=== PATIENT | male | born 1990 | race Caucasian/White ===

== ENCOUNTER 2019-01-08 10:31 | Emergency (ER) | payer MEDICAID ==
[~2019-01-08] VITALS: Ht 177.8 cm; Wt 114.0 kg
[2019-01-08] MEDS ORDERED: HYDR-3965 PO (11:04)
--- NOTE | 2019-01-08 11:20 | NUR ---
TECH IN ROOM TO APPLY SPLINT TO RIGHT ANKLE
[2019-01-08 11:33] VITALS: BP 161/103
== END 2019-01-08 11:38 | disposition home or self-care (01) ==
LOC: ER 10:33
DX: S82.831A Other fracture of upper and lower end of right fibula, initial encounter for closed fracture (principal); Z79.899 Other long term (current) drug therapy; X58.XXXA Exposure to other specified factors, initial encounter; Y93.89 Activity, other specified; Y92.89 Other specified places as the place of occurrence of the external cause; Y99.8 Other external cause status
CPT/HCPCS: 29515; 73610; 99283

== ENCOUNTER 2019-01-24 11:48 | Outpatient (CLI) | payer MEDICAID | END 2019-01-24 13:30 | disposition home or self-care (01) | LOC: ORTHO 11:48 | PROVIDERS: ATTEND Orthopaedic Surgery | DX: S82.831D Other fracture of upper and lower end of right fibula, subsequent encounter for closed fracture with routine healing (principal); X58.XXXD Exposure to other specified factors, subsequent encounter | CPT/HCPCS: 73610; G0463 ==

== ENCOUNTER 2021-08-29 09:01 | Emergency (ER) | payer MEDICAID ==
[~2021-08-29] VITALS: Ht 177.8 cm; Wt 118.0 kg
[2021-08-29 10:42] LABS: BASOPHILS # (AUTO) 0.1 X10'3 (0-0.2); BASOPHILS % (AUTO) 1.2 % (0-1); EOSINOPHILS % (AUTO) 0.4 % (0-6); HEMATOCRIT 49.1 % (42.0-52.0); HEMOGLOBIN 17.2 g/dl (14.0-17.9); LYMPHOCYTES # (AUTO) 1.9 X10'3 (1.1-4.8); LYMPHOCYTES % (AUTO) 25.3 % (21-51); MEAN CORPUSCULAR HEMOGLOBIN 34.3 PG (27.0-31.0); MEAN PLATELET VOLUME 8.7 FL (7.4-10.4); MONOCYTES # (AUTO) 0.5 X10'3 (0-0.9); MONOCYTES % (AUTO) 7.1 % (2-12); PLATELET COUNT 231 X10'3 (140-440); RED BLOOD COUNT 5.02 X10'6 (4.70-6.10); RED CELL DISTRIBUTION WIDTH 12.6 % (11.5-14.5); WHITE BLOOD COUNT 7.6 X10'3 (4.5-11.0)
[2021-08-29 10:54] LABS: ALBUMIN 3.3 G/DL (3.4-5.0); ALKALINE PHOSPHATASE 140 IU/L (46-116); BILIRUBIN,TOTAL 2.2 MG/DL (0.1-1.0); BLOOD UREA NITROGEN 7 MG/DL (7-18); BUN/CREATININE RATIO 8.2 (5.4-32.0); CALCIUM 8.6 MG/DL (8.5-10.1); CREATININE 0.85 MG/DL (0.60-1.10); TOTAL CARBON DIOXIDE 19.2 MMOL/L (24-32); eGFR > 90 ML/MIN
[2021-08-29 11:21] LABS: ALANINE AMINOTRANSFERASE 110 U/L (12-78); ALBUMIN/GLOBULIN RATIO 0.7 (1.1-1.5); ANION GAP 20 (8-16); CHLORIDE 93 MMOL/L (99-107); SODIUM 132 MMOL/L (135-145); TOTAL PROTEIN 8.3 G/DL (6.4-8.2)
[2021-08-29 11:24] LABS: POTASSIUM 3.9 MMOL/L (3.5-5.1)
[2021-08-29 11:25] LABS: GLUCOSE 151 MG/DL (70-104)
[2021-08-29 11:33] LABS: ASPARTATE AMINO TRANSFERASE 161 U/L (10-37)
[2021-08-29 12:52] VITALS: BP 152/107
== END 2021-08-29 13:02 | disposition home or self-care (01) ==
LOC: ER 09:01
DX: I10 Essential (primary) hypertension (principal); R42 Dizziness and giddiness; R07.89 Other chest pain; F10.10 Alcohol abuse, uncomplicated; Y90.9 Presence of alcohol in blood, level not specified
CPT/HCPCS: 36415; 71045; 80053; 83880; 84484; 85025; 93005; 99284; 99285